=== PATIENT | female | born 1980 | race African-American/Black ===

== ENCOUNTER 2017-09-06 11:14 | Emergency (ER) | payer OTHER ==
[~2017-09-06] VITALS: Ht 160 cm; Wt 84.0 kg
[~2017-09-06 11:14] MED LIST: B-COTAB41 PO; BACL10TA PO; CHOL1CAP6 PO; FERR325T PO; IBUP600T26 PO; MULT-65 PO; TYLE500T PO; VALA500T PO
[2017-09-06 11:17] VITALS: BP 128/72; PULSE 86; RESP 16; TEMP 98.2; O2SAT 99
--- NOTE | 2017-09-06 11:47 | PD ---
Physical Exam Date Seen by Provider: Sep 06, 2017 Time Seen by Provider: 11:30 Narrative Patient signed out to me by Dr. Jara, patient was seen in the [facility] and sent here because of CAT scan showing a left pelvic mass measuring 3.6 cm and it was recommended that the patient gets an ultrasound for further characterization. She is status post hysterectomy. Has not had any vaginal discharge or any other complaints. On exam, she is tender in the left abdomen and left lower quadrant. She is awake, alert, in mild distress. Cardiac and pulmonary exam is fairly unremarkable. Ultrasound is showing a solid mass that is concerning for malignancy. At this point, patient is resting fairly comfortably in the ER. I have talked to her regarding the findings and my concern that this could be a tumor, and that it will need to be evaluated further with [facility]. She was given contact for Dr. Herzog who is an area oncologist. Return for any worsening in pain or new symptoms as needed. The plan has been discussed with patient and she states understanding. Data Data Last Documented VS Vital Signs Date Time Temp Pulse Resp B/P (MAP) Pulse Ox O2 Delivery O2 Flow Rate FiO2 09/06/17 11:17 98.2 86 16 128/72 (90) 99 Orders Orders Us Pelvis Comp W Dop Transvag (09/06/17 11:40) Ed Discharge Order (09/06/17 14:24) MDM Medical Record Reviewed: Yes Supervised Visit with [facility]: No Diagnosis Primary Impression: Ovarian mass, left Referrals: Stephany Herzog MD Med/Other Pt SpecificInfo: Prescription(s) given Scripts Tramadol (Tramadol) 50 Mg Tab 50 MG PO Q6H Y for PAIN, #12 TAB 0 Refills Prov: Paco Simon MD 09/06/17 Disposition: 01 DISCHARGE HOME Condition: Stable Paco Simon MD Sep 06, 2017 11:47
--- NOTE | 2017-09-06 14:20 | RADRPT ---
EXAM DATE/TIME: 09/06/2017 12:50 [place] COMPARISON: CT ABDOMEN & PELVIS W CONTRAST, September 06, 2017, 9:35. INDICATIONS : Mass seen on CT in left adnexa. MEDICAL HISTORY : Fibroids. Head injury. Left side numbness. Heart murmur. Arthritis. SURGICAL HISTORY : Lasik. Tummy tuck. ENCOUNTER: Initial ACUITY: 1 day PAIN SCORE: 0/10 LOCATION: Bilateral pelvis MEASUREMENTS: UTERUS: Surgically absent RIGHT OVARY: 2.7 x 2.9 x 1.3 cm LEFT OVARY: 4.8 x 3.9 x 3.8 cm FINDINGS: UTERUS: The myometrium has homogeneous echotexture without mass. RIGHT OVARY: Ovary contains no mass or significant cystic lesion. LEFT OVARY: A hypoechoic solid appearing mass measuring 5.1 x 3.9 x 3.8 cm in size is identified in the left adne xa. MISCELLANEOUS: Minimal free fluid is identified in the cul-de-sac. CONCLUSION: Solid hypoechoic left adnexal mass; malignancy needs to be excluded. Normal uterus and right ovary. Zander Simmons MD on September 06, 2017 at 14:16 Board Certified Radiologist. This report was verified electronically.
[2017-09-06] MEDS ORDERED: TRAM50TA PO (14:28)
== END 2017-09-06 14:51 | disposition home or self-care (01) ==
LOC: NEPC 11:14
DX: N83.9 Noninflammatory disorder of ovary, fallopian tube and broad ligament, unspecified (principal); Z90.710 Acquired absence of both cervix and uterus
CPT/HCPCS: 76830; 76856; 93975; 99284